=== PATIENT | female | born 1985 | race Caucasian/White ===

== ENCOUNTER 2018-06-09 12:40 | Inpatient (IN) | payer OTHER ==
[~2018-06-09] VITALS: Ht 172.7 cm; Wt 69.1 kg
[~2018-06-09 12:40] MED LIST: CLONAZEPAM0.5 MG PO; MOTRIN IB200 MG PO; NO HOME MEDS
[2018-06-09 15:20] LABS: HEMATOCRIT 40.4 % (36.0-46.0); HEMOGLOBIN 13.9 G/DL (11.9-15.5); MCHC 34.4 G/DL (30.0-36.0); MCV 87.1 FL (83-99); RBC DIS.WIDTH-CV 13.3 % (11.8-14.6); RBC DIS.WIDTH-SD 42.5 % (39-53); RED BLOOD COUNT 4.64 M/uL (3.80-5.20); WHITE BLOOD COUNT 6.6 K/uL (4.1-10.2)
[2018-06-09 15:23] LABS: ALBUMIN 4.9 g/dL (3.2-4.8); CHLORIDE 107 mEq/L (99-109); POTASSIUM 3.8 mEq/L (3.7-5.4); SODIUM 141 mEq/L (136-147)
[2018-06-09 15:26] LABS: GLUCOSE 70 mg/dL (70-99); TOTAL PROTEIN 9.2 g/dL (6.4-8.3)
[2018-06-09 15:28] LABS: TOTAL BILIRUBIN 0.5 mg/dL (0.0-1.0)
[2018-06-09 15:29] LABS: ALKALINE PHOSPHATASE 87 IU/L (3-129); SERUM ETHYL ALCOHOL < 10 mg/dL
[2018-06-09 15:30] LABS: CREATININE 0.8 mg/dL (0.6-1.3); GFR ESTIMATE (CALCULATED) > 59 mL/min/
[2018-06-09 15:31] LABS: AST (GOT) 16 IU/L (2-34); UREA NITROGEN (BUN) 20 mg/dL (9-23)
[2018-06-09 15:32] LABS: ALT (GPT) 11 IU/L (3-49)
[2018-06-09 15:33] LABS: ACETAMINOPHEN (TYLENOL) < 10 mcg/mL (10-30)
[2018-06-09 15:36] LABS: PTT 25.9 SEC (25-37)
[2018-06-09 15:41] LABS: QUANTITATIVE HCG < 4.0 MIU/ML
[2018-06-09 16:01] LABS: PLATELET COUNT 212 K/uL (156-360)
[2018-06-09 16:34] LABS: APPEARANCE CLEAR ((CLEAR)); BILIRUBIN NEGATIVE; BLOOD NEGATIVE; COLOR YELLOW ((YELLOW)); GLUCOSE (STRIP) NEGATIVE; KETONES 5; LEUKOCYTES TRACE; NITRITE NEGATIVE; PROTEIN (STRIP) 30; SPECIFIC GRAVITY 1.029 (1.000-1.030)
[2018-06-09] MEDS ORDERED: LIBRIUM25 MG PO (16:39)
[2018-06-09] MEDS ORDERED: B-1100 MG PO (16:39)
[2018-06-09 16:53] LABS: AMPHETAMINE NEGATIVE (500 ng/mL); BARBITURATES NEGATIVE (200 ng/mL); BENZODIAZEPINES NEGATIVE (150 ng/mL); COCAINE PRESUMPTIVE POSITIVE (150 ng/mL); METHADONE NEGATIVE (200 ng/mL); METHAMPHETAMINE NEGATIVE (500 ng/mL); OPIATES (MORPHINE) NEGATIVE (100 ng/mL); OXYCODONE NEGATIVE (100 ng/mL); PHENCYCLIDINE NEGATIVE (25 ng/mL); THC CANNABINOIDS NEGATIVE (50 ng/mL); TRICYCLIC ANTIDEPRESSANTS NEGATIVE (300 ng/mL)
[2018-06-09 16:54] LABS: BUPRENORPHINE PRESUMPTIVE POSITIVE (10 ng/mL); PROPOXYPHENE NEGATIVE (300 ng/mL)
[2018-06-09 16:58] LABS: EPITHELIAL CELLS NONE SEEN /HPF; RED BLOOD CELLS 0-5 /HPF (0-5); WHITE BLOOD CELLS 0-5 /HPF (0-5)
[2018-06-09 16:59] LABS: BACTERIA NONE SEEN /HPF; MUCUS NONE SEEN /LPF; UCUL ADDED? NO
[2018-06-10 16:48] VITALS: BP 136/93
[2018-06-11 07:52] VITALS: BP 103/65
[2018-06-11 11:25] VITALS: BP 118/73
[2018-06-11 16:41] VITALS: BP 107/61
[2018-06-12 07:54] VITALS: BP 79/55
[2018-06-12 09:02] VITALS: BP 127/77
[2018-06-12 16:18] VITALS: BP 119/66
[2018-06-13 08:00] VITALS: BP 85/54
[2018-06-13 16:20] VITALS: BP 112/71
[2018-06-14 08:01] VITALS: BP 95/50
[2018-06-14 16:12] VITALS: BP 113/63
[2018-06-15 09:05] VITALS: BP 108/59
[2018-06-15 16:46] VITALS: BP 123/73
[2018-06-16 08:16] VITALS: BP 100/50
[2018-06-16 15:34] VITALS: BP 125/75
[2018-06-17 07:56] VITALS: BP 111/58
[2018-06-17 17:09] VITALS: BP 94/50
[2018-06-18 07:38] VITALS: BP 102/65
[2018-06-18] MEDS ORDERED: CARBAMAZEPINE200 MG PO (09:00)
[2018-06-18] MEDS ORDERED: SERTRALINE HCL25 MG PO (09:00)
[2018-06-18] MEDS ORDERED: BUPRENORPHIN-N1 EACH SL (09:00)
== END 2018-06-18 10:39 | disposition other institution (70) | DRG 897 ==
LOC: EME 12:40 → EDOF 06-10 13:16 → 1WEST 06-10 13:16 → ENRESERV 06-10 16:09 → 1WEST 06-10 16:18
PROVIDERS: Physician Assistant
PROC: HZ2ZZZZ Detoxification Services for Substance Abuse Treatment (ICD-10-PCS; principal; 2018-06-10)
DX: F11.23 Opioid dependence with withdrawal (principal); F10.239 Alcohol dependence with withdrawal, unspecified; R45.851 Suicidal ideations; F13.10 Sedative, hypnotic or anxiolytic abuse, uncomplicated; F32.9 Major depressive disorder, single episode, unspecified; B19.20 Unspecified viral hepatitis C without hepatic coma; F17.200 Nicotine dependence, unspecified, uncomplicated; Z75.1 Person awaiting admission to adequate facility elsewhere
CPT/HCPCS: 80053; 81003; 84702; 84999; 85027; 85610; 85730; 90839; 97150 GO; 97165 GO; 99281; 99285; G0480; J0574; Q0177